=== PATIENT | male | born 2000 | race Caucasian/White ===

== ENCOUNTER 2022-02-14 13:49 | Emergency (ER) | payer BC ==
[2022-02-14] MEDS ORDERED: HYDROcodone/Acetaminophen 10/325 mg Tablet ONE (14:00)
[2022-02-14] MEDS ORDERED: Clindamycin 150 MG CAP ONE (14:00)
== END 2022-02-14 14:11 | disposition home or self-care (01) ==
LOC: BURERS 13:49
DX: K02.9 Dental caries, unspecified (principal); F17.210 Nicotine dependence, cigarettes, uncomplicated
CPT/HCPCS: 99282